=== PATIENT | male | born 1995 | race Caucasian/White ===

== ENCOUNTER 2017-03-10 16:27 | Emergency (ER) | payer OTHER ==
[~2017-03-10] VITALS: Ht 180.3 cm; Wt 73.0 kg
[2017-03-10 16:29] VITALS: Ht 180.3 cm; Wt 73.0 kg
[2017-03-10] MEDS ORDERED: FLUORESCEIN STRIP LEFT EYE ONE (17:30)
[2017-03-10] MEDS ORDERED: TETRACAINE 0.5% 4 ML OPH LEFT EYE ONE (17:30)
[2017-03-10] MEDS ORDERED: POLY10DR19 LEFT EYE (17:59)
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
== END 2017-03-10 18:10 | disposition home or self-care (01) ==
LOC: FTE 16:27
DX: H10.9 Unspecified conjunctivitis (principal); F17.210 Nicotine dependence, cigarettes, uncomplicated
CPT/HCPCS: 99283